=== PATIENT | female | born 1980 | race Hispanic/Latino ===

== ENCOUNTER 2017-09-20 23:40 | Emergency (ER) | payer OTHER ==
[2017-09-20 23:48] VITALS: BP 138/72; PULSE 118; RESP 18; TEMP 98.4; O2SAT 98
[2017-09-21] MEDS ORDERED: Sodium Chloride 0.9% 1,000 ML IV STA (00:09)
--- NOTE | 2017-09-21 00:09 | ED PDOC ---
HPI: Abdomen Time Seen by Provider: 09/20/17 23:50 Chief Complaint (Nursing): Abdominal Pain History Per: Patient Additional Complaint(s): 37 yo F patient on day 5 w/o PMH presents to the ED c/o intermittent abdominal pain on epigastrium that started this evening around 7 pm, 7/10, cramping, no radiated, no aggravating or alleviating factors. Associated chills , nausea, nbnb vomiting x1 with rest of foods, liquid diarrhea x1, heartburn. Patient took her temperature at home being 100.1 F, she took Motrin. Patient is on day 5 of NVD at 40 weeks. No complications during care or delivery. Denies chest pain, sob, palpitations, headache, blurred vision,no abnormal vaginal bleeding, no urinary symptoms. Past Medical History Vital Signs: Last Vital Signs Temp 98.4 F 09/20/17 23:45 Pulse 118 H 09/20/17 23:45 Resp 18 09/20/17 23:45 BP 138/72 09/20/17 23:45 Pulse Ox 98 09/21/17 03:23 - Family History Family History: States: No Known Family Hx - Home Medications Home Medications: Ambulatory Orders Medication Instructions Recorded Famotidine [Pepcid] 20 mg PO Q12 #14 tab 09/21/17 Metoclopramide [Reglan] 10 mg PO Q6 PRN #12 tab 09/21/17 - Allergies Allergies/Adverse Reactions: Allergies Allergy/AdvReac Type Severity Reaction Status Date / Time No Known Allergies Allergy Verified 09/20/17 23:48 Review of Systems ROS Statement: Except As Marked, All Systems Reviewed And Found Negative Physical Exam - Reviewed Nursing Documentation Reviewed: Yes Vital Signs Reviewed: Yes - Physical Exam Appears: Positive for: No Acute Distress Head Exam: Positive for: NORMAL INSPECTION Skin: Positive for: Normal Color, Warm, Dry Eye Exam: Positive for: EOMI, PERRL Neck: Positive for: Supple Cardiovascular/Chest: Positive for: Regular Rate, Rhythm. Negative for: Murmur Respiratory: Positive for: Normal Breath Sounds. Negative for: Rales, Rhonchi, Stridor Pulses-Dorsalis Pedis (L): 2+ Pulses-Dorsalis Pedis (R): 2+ Gastrointestinal/Abdominal: Positive for: Bowel Sounds, Soft. Negative for: Tenderness, Distended Extremity: Positive for: Pedal Edema. Negative for: Calf Tenderness Neurologic/Psych: Positive for: Alert, pulp grinder and blender II-XII, Oriented - Laboratory Results Result Diagrams: 09/21/17 00:38 09/21/17 00:38 - ECG O2 Sat by Pulse Oximetry: 98 - Progress ED Course And Treament: Impression: Gastroenteritis Plan: CBC CMP Lipase UA Abdominal US Pepcid 20 mg IV once Zofran 4 mg IV once NS 1000 ml IV Reevaluate Reevaluation 0120 Patient reports feeling better, less pain than arrival CMP and CBC wnl UA normal pending abdominal US 0315 patient feels fine Abdominal US normal Pelvic US normal. Discharged home. Disposition - Clinical Impression Clinical Impression: Gastroenteritis - Patient ED Disposition Is Patient to be Admitted: No - Disposition Disposition: Routine/Home Disposition Time: 03:21 Condition: STABLE Additional Instructions: F/U with PMD in 2-3 days ER precaution given Prescriptions: Famotidine [Pepcid] 20 mg PO Q12 #14 tab Metoclopramide [Reglan] 10 mg PO Q6 PRN #12 tab PRN Reason: Nausea/Vomiting Instructions: Gastroenteritis (ED) Forms: [facility] ([place])
[2017-09-21 00:44] LABS: BASO % 0.2 % (0.0-2.0); EOS # 0.1 K/uL (0.0-0.7); EOS % 0.7 % (0.0-4.0); HEMATOCRIT 36.6 % (34.0-47.0); LYMPH # 0.3 K/uL (1.0-4.3); LYMPH % 3.3 % (20.0-40.0); MEAN CELL VOLUME 93.5 fl (81.0-99.0); MEAN CORPUSCULAR HEMOGLOBIN 31.3 pg (27.0-31.0); MEAN CORPUSCULAR HGB CONC 33.5 g/dL (33.0-37.0); MEAN PLATELET VOLUME 7.8 fl (7.2-11.7); MONO # 0.3 K/uL (0.0-0.8); MONO % 3.1 % (0.0-10.0); NEUT # 9.2 K/uL (1.8-7.0); NEUT % 92.7 % (50.0-75.0); PLATELET COUNT 235 K/uL (130-400); RED CELL DISTRIBUTION WIDTH 12.7 % (11.5-14.5); WHITE BLOOD COUNT 9.9 K/uL (4.8-10.8)
[2017-09-21 00:56] LABS: ALKALINE PHOSPHATASE 102 U/L (38-126); ALT/SGPT 56 U/L (9-52); AST/SGOT 43 U/L (14-36); BILIRUBIN,TOTAL 0.4 mg/dl (0.2-1.3); BLOOD UREA NITROGEN 18 mg/dl (7-17); CALCIUM 8.7 mg/dL (8.4-10.2); CARBON DIOXIDE 24 mmol/L (22-30); CHLORIDE 108 mmol/L (98-107); GFR AFRICAN-AMERICAN > 60; GLUCOSE,RANDOM 108 mg/dL (65-105); LIPASE 104 U/L (23-300); POTASSIUM 3.9 MMOL/L (3.6-5.0); SODIUM 138 mmol/l (132-148); TOTAL PROTEIN 6.4 G/DL (6.3-8.2)
[2017-09-21 00:58] LABS: ALB/GLOB RATIO 1.2 (1.0-2.1)
[2017-09-21 01:11] LABS: RBC URINE 109 /hpf (0-3); URINE BACTERIA RARE (<OCC); URINE BILIRUBIN NEGATIVE (NEGATIVE); URINE BLOOD LARGE (NEGATIVE); URINE COLOR YELLOW (YELLOW); URINE GLUCOSE (UA) NEG (Normal); URINE KETONE NEGATIVE (NEGATIVE); URINE LEUKOCYTE ESTERASE MOD Leu/uL (Negative); URINE PROTEIN NEGATIVE (NEGATIVE); URINE UROBILINOGEN 0.2-1.0 mg/dL (0.2-1.0); WBC URINE 30 /hpf (0-5)
[2017-09-21 01:58] LABS: NEUTROPHIL 95 % (42-75); REACTIVE LYMPHOCYTES 1 % (0-0); TOTAL CELLS COUNTED 100
--- NOTE | 2017-09-21 10:59 | US ---
HISTORY: gall bladder COMPARISON: None. TECHNIQUE: Sonographic evaluation of the right upper quadrant of the abdomen. FINDINGS: LIVER: Measures 16.4 cm in length. Normal echogenicity of the liver parenchyma. No mass. No intrahepatic bile duct dilatation. GALLBLADDER: Unremarkable. No gallstones. COMMON BILE DUCT: Measures 3 mm. No stones. No dilatation. PANCREAS: Unremarkable as visualized. No mass. No ductal dilatation. RIGHT KIDNEY: Measures 11.6 cm in length. Normal echogenicity. No calculus, mass, or hydronephrosis. AORTA: No aneurysmal dilatation. IVC: Unremarkable. OTHER FINDINGS: None . IMPRESSION: Unremarkable abdominal ultrasound examination. Preliminary interpretation of this examination was reported by [facility] at 2:52 a.m. on 09/21/2017. There is concurrence of this report with the preliminary interpretation.
--- NOTE | 2017-09-21 11:01 | US ---
HISTORY: post abd pain R/O RPOC COMPARISON: None available. TECHNIQUE: Transabdominal only FINDINGS: UTERUS: Measures 14.9 x 6.7 x 9.9 cm. Normal in size and appearance. No fibroid or other mass lesion seen. ENDOMETRIUM: Measures 14 mm in diameter. No endometrial fluid. Mildly heterogeneous endometrium, nonspecific. No evidence of retained products of conception. CERVIX: No cervical abnormality identified. RIGHT OVARY: Not visualized LEFT OVARY: Measures 2.4 x 1.8 x 1.8 cm. No solid mass. Normal flow. FREE FLUID: No significant free fluid noted. OTHER FINDINGS: None. IMPRESSION: No evidence of retained products of conception. Preliminary interpretation of this examination was reported by [facility] at 2:54 a.m. on 09/21/2017. There is concurrence of this report with the preliminary interpretation.
== END 2017-09-21 03:30 | disposition home or self-care (01) ==
LOC: H.ER 23:40
DX: K52.9 Noninfective gastroenteritis and colitis, unspecified (principal)
CPT/HCPCS: 76705; 76856; 80053; 81003; 83690; 85025; 87086; 96374; 96375; 99283; J2405; J7040